=== PATIENT | male | born 1945 | race Caucasian/White ===

== ENCOUNTER 2019-06-26 14:04 | Outpatient (RCR) | payer SELFPAY | END 2019-07-07 00:01 | LOC: WOUND 14:04 | PROVIDERS: Family Provider Family Medicine; Visit Provider Surgery | DX: I87.2 Venous insufficiency (chronic) (peripheral) (principal); L97.812 Non-pressure chronic ulcer of other part of right lower leg with fat layer exposed; I96 Gangrene, not elsewhere classified; M79.604 Pain in right leg | CPT/HCPCS: 11042 ×2; 93971; G0463 ==

== ENCOUNTER → 2019-12-03 11:44 | Outpatient (BNVA) | payer MEDICARE, MEDICAID, SELFPAY | PROVIDERS: Family Provider Family Medicine; PCP Family Medicine; Visit Provider Family Medicine | DX: Z72.0 Tobacco use (principal); Z00.00 Encounter for general adult medical examination without abnormal findings; I73.9 Peripheral vascular disease, unspecified; I25.10 Atherosclerotic heart disease of native coronary artery without angina pectoris; Z12.2 Encounter for screening for malignant neoplasm of respiratory organs | CPT/HCPCS: 80053; 80061; 83735; 85025 ==

== ENCOUNTER → 2021-01-17 11:47 | Outpatient (BNVA) | payer MEDICARE, MEDICAID, SELFPAY | PROVIDERS: Family Provider Family Medicine; PCP Family Medicine; Visit Provider Family Medicine | DX: L81.9 Disorder of pigmentation, unspecified (principal) | CPT/HCPCS: 88304 ==

== ENCOUNTER → 2021-04-13 09:07 | Outpatient (BNVA) | payer MEDICARE, MEDICAID, SELFPAY | PROVIDERS: Family Provider Family Medicine; PCP Family Medicine; Visit Provider Family Medicine | DX: I11.0 Hypertensive heart disease with heart failure (principal); I50.32 Chronic diastolic (congestive) heart failure; I25.10 Atherosclerotic heart disease of native coronary artery without angina pectoris; J44.9 Chronic obstructive pulmonary disease, unspecified | CPT/HCPCS: 80053; 80061; 83735; 83880; 85025 ==

== ENCOUNTER → 2022-05-09 10:14 | Outpatient (BNVA) | payer MEDICARE, MEDICAID, SELFPAY | PROVIDERS: Family Provider Family Medicine; PCP Family Medicine; Visit Provider Nurse Practitioner Family | DX: R68.89 Other general symptoms and signs (principal); R05.9 Cough, unspecified; J43.9 Emphysema, unspecified | CPT/HCPCS: 71046; 87400 ==

== ENCOUNTER 2022-06-13 13:12 | Outpatient (CLI) | payer MEDICARE, MEDICAID, SELFPAY ==
--- NOTE | 2022-06-13 13:30 | CT_ITS ---
WS: [id number] CT CHEST WITHOUT INTRAVENOUS CONTRAST HISTORY: R91.1 - Solitary pulmonary nodule TECHNIQUE: Contiguous 5 mm axial imaging performed on the thorax. Coronal and sagittal reformats are submitted. All CT scans at [facility] use at least one of these dose optimization techniques: automated exposure control; mA and/or kV adjustment per patient size (includes targeted exams where dose is matched to clinical indication); or iterative reconstruction. CONTRAST: None DLP: 763.58 mGy.cm COMPARISON: 05/17/2022 radiograph Lungs and central airway: Previously described round nodule at the LEFT lung base is significantly ch anged in size and appearance. There is round nodule is no longer present. There is a very small area measuring 9 x 8 mm in the LEFT lower lobe abutting the pleura which is triangular shaped. There is ad jacent very mild interstitial thickening. Due to the significant change in size and appearance this w as probably a rounded pneumonia or atelectasis that is resolving. Centrilobular and paraseptal emphys ematous changes. Benign granuloma RIGHT upper lobe. Pleura: Normal. No pleural effusion. Heart and pericardium: Normal size heart. No effusion. Artifact from lead wires in the RIGHT heart. Mediastinum and leroy: Small mediastinal and hilar lymph nodes. Vessels: Heavy calcification in the thoracic aorta extending into the great vessels. Normal size pulm onary artery. Chest wall and lower neck: LEFT subclavian dual lead cardiac pacer. Upper abdomen: Bilateral adrenal adenomas. The largest on the RIGHT measures 2.4 x 1.6 cm. Osseous structures: No destructive process. CT/CT chest wo con [id number] IMPRESSION: 1. Significant decrease in size and shape of the LEFT lower lobe pulmonary nod ule seen on radiograph. Nodule now measures 9 x 8 mm and is slightly triangular in appearance suggesting this is atelectasis and resolving. No additional foll ow-up necessary unless there is a clinical change. 2. Moderate paraseptal and centrilobular emphysema. 3. Benign adrenal adenomas.
== END 2022-06-13 13:13 | disposition home or self-care (01) ==
LOC: RAD 13:13
PROVIDERS: PCP Family Medicine; Visit Provider Family Medicine
DX: R91.1 Solitary pulmonary nodule (principal); J43.2 Centrilobular emphysema; D35.00 Benign neoplasm of unspecified adrenal gland
CPT/HCPCS: 71250

== ENCOUNTER → 2022-07-25 09:14 | Outpatient (BNVA) | payer MEDICARE, MEDICAID, SELFPAY | PROVIDERS: PCP Family Medicine; Visit Provider Family Medicine | DX: I25.10 Atherosclerotic heart disease of native coronary artery without angina pectoris (principal); J43.9 Emphysema, unspecified; I10 Essential (primary) hypertension | CPT/HCPCS: 80053; 80061; 85025 ==

== ENCOUNTER → 2022-11-20 15:22 | Outpatient (BNVA) | payer MEDICARE, MEDICAID, SELFPAY | PROVIDERS: PCP Family Medicine; Visit Provider Internal Medicine Pulmonary Disease | DX: J43.2 Centrilobular emphysema (principal); Z86.718 Personal history of other venous thrombosis and embolism; I50.32 Chronic diastolic (congestive) heart failure; Z79.01 Long term (current) use of anticoagulants; F17.210 Nicotine dependence, cigarettes, uncomplicated | CPT/HCPCS: 99204 ==

== ENCOUNTER → 2024-08-05 15:01 | Outpatient (BNVA) | payer MEDICARE, MEDICAID, SELFPAY | PROVIDERS: PCP Family Medicine; Visit Provider Family Medicine | DX: I10 Essential (primary) hypertension (principal); I50.32 Chronic diastolic (congestive) heart failure; I25.10 Atherosclerotic heart disease of native coronary artery without angina pectoris; J43.2 Centrilobular emphysema; Z72.0 Tobacco use; J44.9 Chronic obstructive pulmonary disease, unspecified | CPT/HCPCS: 80053; 80061; 85025 ==